=== PATIENT | male | born 1980 | race African-American/Black ===

== ENCOUNTER 2018-06-30 07:21 | Emergency (ER) | payer OTHER, SELFPAY ==
[2018-06-30] MEDS ORDERED: Adacel (T-DAP) 0.5 ML VIAL ONE (07:28)
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
== END 2018-06-30 08:46 | disposition home or self-care (01) ==
LOC: ERS 07:21
DX: S06.0X0A Concussion without loss of consciousness, initial encounter (principal); S60.512A Abrasion of left hand, initial encounter; S60.511A Abrasion of right hand, initial encounter; S40.211A Abrasion of right shoulder, initial encounter; S80.211A Abrasion, right knee, initial encounter; V29.9XXA Motorcycle rider (driver) (passenger) injured in unspecified traffic accident, initial encounter
CPT/HCPCS: 70450; 90471; 90715; G0390

== ENCOUNTER 2018-07-01 10:54 | Emergency (ER) | payer SELFPAY | END 2018-07-01 11:59 | disposition home or self-care (01) | LOC: ERS 10:54 | DX: R22.0 Localized swelling, mass and lump, head (principal); I10 Essential (primary) hypertension | CPT/HCPCS: 99283 ==

== ENCOUNTER 2018-10-29 13:18 | Emergency (ER) | payer OTHER, SELFPAY ==
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
--- NOTE | 2018-10-29 15:28 | RAD ---
LEFT RIBS AND PA CHST: HISTORY: Rib injury. FINDINGS: Heart size and mediastinum are within normal limits. The lungs are clear of any infiltrative process . No signs of pneumothorax. No rib fractures are identified. IMPRESSION: Negative left ribs. POS: [facility]
== END 2018-10-29 15:45 | disposition home or self-care (01) ==
LOC: ERS 13:18
DX: S06.9X9A Unspecified intracranial injury with loss of consciousness of unspecified duration, initial encounter (principal); S00.93XA Contusion of unspecified part of head, initial encounter; S30.0XXA Contusion of lower back and pelvis, initial encounter; W20.8XXA Other cause of strike by thrown, projected or falling object, initial encounter
CPT/HCPCS: 70450; 72125

== ENCOUNTER 2019-05-19 07:44 | Emergency (ER) | payer OTHER, SELFPAY ==
[2019-05-19] MEDS ORDERED: Ketorolac Tromethamine 30 MG/ML VIAL ONE (08:53)
== END 2019-05-19 09:05 | disposition home or self-care (01) ==
LOC: ERS 07:44
DX: M54.5 Low back pain (principal)
CPT/HCPCS: 96372; 99283; J1885

== ENCOUNTER 2019-10-25 09:05 | Emergency (ER) | payer OTHER, SELFPAY ==
[2019-10-25] MEDS ORDERED: Dexamethasone 4 MG TAB ONE (10:12)
== END 2019-10-25 10:18 | disposition home or self-care (01) ==
LOC: ERS 09:05
DX: J06.9 Acute upper respiratory infection, unspecified (principal)
CPT/HCPCS: 99284; J8540